=== PATIENT | male | born 1975 | race Caucasian/White ===

== ENCOUNTER 2018-07-02 21:32 | Emergency (ER) | payer SELFPAY ==
--- NOTE | 2018-07-02 22:17 | RAD ---
RIGHT KNEE FOUR VIEWS: 07/02/18 HISTORY: Right knee pain following an injury after stepping up onto a porch. FINDINGS: Mild degenerative changes. No acute fracture or dislocation. IMPRESSION: No acute fracture or dislocation. Mild degenerative change. POS: [facility]
== END 2018-07-02 22:50 | disposition home or self-care (01) ==
LOC: SCSER 21:32
DX: M25.561 Pain in right knee (principal); F17.210 Nicotine dependence, cigarettes, uncomplicated; Z71.6 Tobacco abuse counseling
CPT/HCPCS: 99406

== ENCOUNTER 2018-12-14 17:11 | Emergency (ER) | payer SELFPAY ==
--- NOTE | 2018-12-14 17:57 | RAD ---
CHEST TWO VIEW: 12/14/18 HISTORY: Cough. COMPARISON: Radiograph 217. FINDINGS: Heart size is mildly enlarged. Early edema. No pneumothorax. No effusion. No significant osseous abno rmality. IMPRESSION: Cardiomegaly with mild pulmonary edema. POS: [facility]
== END 2018-12-14 18:11 | disposition home or self-care (01) ==
LOC: SCSER 17:11
DX: J20.9 Acute bronchitis, unspecified (principal); F17.210 Nicotine dependence, cigarettes, uncomplicated
CPT/HCPCS: 71046

== ENCOUNTER 2019-10-26 19:47 | Inpatient (IN) | payer SELFPAY ==
--- NOTE | 2019-10-26 21:56 | RAD ---
RIGHT KNEE FOUR VIEWS: 10/26/19 COMPARISON: 07/02/18. HISTORY: Trauma, pain. FINDINGS: There is a comminuted impacted fracture involving the lateral tibial plateau. There is a large knee joint effusion with a fat fluid level consistent with lipohemarthrosis. There is patellofemoral joint space narrowing. No evidence for dislocation. IMPRESSION: Comminuted depressed lateral tibial plateau fracture. Recommend orthopedic consultation. POS: [facility]
[2019-10-26] MEDS ORDERED: Morphine 4 MG/ML VIAL ONE (22:47)
[2019-10-26] MEDS ORDERED: Ondansetron ODT 4 MG TAB ONE (22:47)
[2019-10-26 23:26] LABS: #Eosinphils 0.1 thou/uL (0.0-0.7); #Lymphocytes 2.2 thou/uL (1.20-3.40); #Monocytes 0.6 thou/uL (0.11-0.59); #Neutrophils 10.9 thou/uL (1.40-6.50); %Basophils 0.3 % (0.0-1.0); %Eosinophils 0.5 % (0.0-10.0); %Lymphocytes 15.9 % (21.0-51.0); %Monocytes 4.6 % (0.0-10.0); %Neutrophils 78.7 % (42.0-75.0); Mean Corpuscular HGB CONC 33.4 g/dL (32.0-36.0); Mean Corpuscular Hemoglobin 29.8 pg (27.0-31.0); Mean Platelet Volume 6.8 fL (7.4-10.4); Platelet Count 253 thou/uL (130-400); RBC Distribution Width 11.6 % (11.5-14.5); Red Blood Cell (RBC) Count 5.37 mill/uL (4.70-6.10); White Blood Cell (WBC) Count 13.8 thou/uL (4.8-10.8)
[2019-10-26] MEDS ORDERED: hydrALAZINE 20 MG/ML VIAL SLOW IVP PRN ×2 (23:30)
[2019-10-26] MEDS ORDERED: Dextrose 5% in Water 1,000 ML IV PRN (23:30)
[2019-10-26] MEDS ORDERED: Ondansetron ODT 4 MG TAB PO PRN (23:30)
[2019-10-26] MEDS ORDERED: Dextrose 50% Abboject 50 ML SYRINGE SLOW IVP PRN (23:30)
[2019-10-26] MEDS ORDERED: Ondansetron PF 4 MG/2 ML Vial IVP PRN (23:30)
[2019-10-26] MEDS ORDERED: HumaLOG 300 UNITS/3 ML VIAL SC PRN (23:30)
[2019-10-26] MEDS ORDERED: Ibuprofen 600 MG TAB PO PRN (23:33)
[2019-10-26] MEDS ORDERED: traMADol HCl 50 MG TAB PO PRN (23:33)
[2019-10-26 23:46] LABS: Prothrombin Time 13.1 sec (12.0-14.7)
[2019-10-26 23:47] LABS: ALT (SGPT) 29 U/L (8-55); AST (SGOT) 24 U/L (5-34); Albumin 4.6 g/dL (3.5-5.0); Alkaline Phosphatase 125 U/L (40-110); Anion Gap 14 mmol/L (10-20); BUN (Urea Nitrogen) 10 mg/dL (8.9-20.6); Bilirubin, Total 0.6 mg/dL (0.2-1.2); Calc. Creatinine Clearance 0 mL/min (70-130); Calcium 9.9 mg/dL (7.8-10.44); Carbon Dioxide 27 mmol/L (22-29); Chloride 98 mmol/L (98-107); Estimated GFR-MDRD 81; Globulin 3.4 g/dL (2.4-3.5); Glucose 103 mg/dL (70-105); Potassium 3.8 mmol/L (3.5-5.1); Sodium 135 mmol/L (136-145)
--- NOTE | 2019-10-27 00:34 | HP ---
This is Terrance Mcenal PA-C dictating a report for Tono Reed MD. REQUESTING PHYSICIAN: Dr. Bebeto Vargas, HOST COORDINATOR-C CONSULTING PHYSICIAN: Dr. Efrem Antonio. HISTORY OF PRESENT ILLNESS: Mr. Maher is a 44-year-old male who presented to the ED after an accident at work. 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 When moving heavy metal sheet, he was hit by a metal sheet on the right leg. No other area of his body was injured. Patient alert and awake the whole time. No loss of consciousness. Upon arrival in the ED, the patient alert and awake. GCS 15. Vital signs stable. Complains of right leg pain. REVIEW OF SYSTEMS: Noncontributory except per HPI. PAST MEDICAL HISTORY: Hypertension. PAST SURGICAL HISTORY: Bilateral hernia repair, cholecystectomy, right middle finger surgery, appendectomy. SOCIAL HISTORY: The patient lives at home with family. The patient drinks socially. Denies drug use. The patient smokes half a pack a day. PHYSICAL EXAMINATION: GENERAL: Currently, the patient is lying in bed in no acute respiratory distress. Complains of right leg pain, 7/10 to 8/10. GCS 15. SKIN: [place] and moist. VITAL SIGNS: Heart rate 82, respiratory rate 18, O2 saturation 98% on room air, blood pressure is 143/87, temperature 98.2. HEENT: Atraumatic. No bruising. Not tender to palpation. Pupils 3 mm, equal bilaterally. NECK: Trachea midline. Not tender to palpation. CHEST: Atraumatic. No bruising. Not tender to palpation. LUNGS: Clear bilaterally. HEART: Regular rate and rhythm. ABDOMEN: No bruising. Not tender to palpation. No rebound. No guarding. Nondistended. Bowel sounds active. PELVIS: Stable. EXTREMITIES: There is obvious deformity of right knee area bruising. Right feet pulses 2+ both dorsal and posterior tibial pulse. Gross sensory intact. Bilateral upper extremity and left lower extremity neurovascularly intact x3. NEUROLOGIC: No focal neurology deficits. DIAGNOSTIC STUDIES: Initial workup shows white count 13.8, hemoglobin is 16, platelet count is 253. Chemistry is pending. Right knee x-ray shows comminuted depressed lateral tibial plateau fracture. ASSESSMENT: 1. Status post got hit by a piece of metal. 2. Right closed comminuted, depressed lateral tibial plateau fracture with neurovascularly intact. 3. History of hypertension. PLAN: The patient will be admitted to [place] [id number] for pain control. N.p.o. at midnight. Initiate pulmonary toilet, gastritis for prophylaxis and nonpharmacological DVT prophylaxis. The patient will be put on right knee immobilizer. Dr. Antonio is notified. Dr. Antonio will take the patient to the OR tomorrow for right tibial plateau fracture fixation. Dr. Reed is notified before the fixation. Job ID: [id number]
[2019-10-27] MEDS: Sodium Chloride 0.9% 1,000 ML IV SCH ×4 (00:53→23:30)
[2019-10-27] MEDS: Acetaminophen 500 MG TAB PO SCH ×5 (00:55→23:30)
[2019-10-27 01:03] VITALS: BMI 34.5
--- NOTE | 2019-10-27 08:16 | CON ---
DATE OF CONSULTATION: This is Vj Jordan PA-C dictating a report for Efrem Antonio MD. HISTORY OF PRESENT ILLNESS: We were asked by ER and Trauma to see the patient. The patient was helping a friend out. He is currently unemployed, and he was making little extra money with him and unfortunately they were lifting some mary plate steel sheets at the back of the workplace building and they slipped away from him and it landed on his right leg and left leg. Left leg has few abrasions, but does not seem to be bothersome. The right leg is in an immobilizer and seems to feel pretty sore, especially with any movement. No numbness and tingling down the legs. Denies any other injuries. PAST MEDICAL HISTORY: Positive for hypertension. PAST SURGICAL HISTORY: He has had appendix, gallbladder, and hernia and a finger surgery. SOCIAL HISTORY: He lives at home with his and family. Denies alcohol or drug use, but does smoke half to a whole pack a day. CURRENT MEDICATIONS: He is on 3 hypertension medications, which his will bring up to the hospital, so we know what he is taking and get him back on those. ALLERGIES: SULFA. REVIEW OF SYSTEMS: Denies any chest pain, shortness of breath, bowel or bladder problems. His main concern is right leg pain. The left leg is a little sore, but basically his only positive review of systems are his injuries. Rest review of systems discussed and are negative. PHYSICAL EXAMINATION: GENERAL: Well-nourished, well-developed male, alert, pleasant, in moderate distress. Speech clear. Affect pleasant. Answer questions appropriately. He is alert and oriented x3. VITAL SIGNS: Respirations 16. No acute distress. HEENT: Normal exam. Face symmetric. Tongue midline. NECK: Supple. Trachea midline. Swallowing okay, but currently is n.p.o. He did have some sips of water for his medications this morning. PELVIS: Nonpainful with rocking. EXTREMITIES: Upper extremities, equal size, shape, symmetry, normal bulk and tone. Movements are good and equal as are strength. He has an IV in the left antecubital space. Lower extremity exam, right lower extremity is in a knee immobilizer. His skin is wrinkled. He does have some swelling around the knee, but the wrinkles are good sign and we informed him of why this is good sign. He is able to move both lower extremities, feet well. No numbness or tingling found. DP and PT pulses equal and sensations intact. His left knee is a little swollen, but he says it is not all that tender. If it starts getting tender in the next few days, may need to get an x-ray of this and he understands. ASSESSMENT: Right tibial plateau fracture. PLAN: We had asked the ER to do a CT scan for surgical purposes, unfortunately this was not done. We are ordering a stat CT this morning for surgical purposes with 3D reconstructions. The patient currently is n.p.o. Plan is to get him to the OR this afternoon. He has been consented. I went over risks and benefits. His questions and concerns have been addressed and they are amenable to go forth with surgery. His currently is not here, but if she comes up and has some questions, we will address those at that time. Job ID: [id number]
[2019-10-27] MEDS: Gabapentin 300 MG CAP PO SCH ×2 (08:43→20:04)
[2019-10-27] MEDS: Famotidine/PF 20 mg/2ml Vial SLOW IVP SCH ×2 (08:43→20:04)
[2019-10-27] MEDS: Nicotine 21 MG PATCH TD SCH (08:44)
[2019-10-27] MEDS: Morphine 4 MG/ML VIAL SLOW IVP PRN ×2 (09:55→18:00)
--- NOTE | 2019-10-27 11:33 | CT ---
CT RIGHT LEG WITHOUT CONTRAST: HISTORY: Pain. Fracture. COMPARISON: Radiograph of prior day. FINDINGS: CT of the right knee was performed without intravenous contrast. Three-D rendering was provided. Lateral split fracture with depression of the weightbearing portion lateral tibial plateau. The zi cular surface depression is approximately 1.4 cm. The fracture involves nearly the entire weightbear ing surface of the lateral tibial plateau. The lateral split fracture is displaced laterally 2 mm. Large lipohemarthrosis. No medial tibial plateau fracture. From the joint space, the fracture exten ds 3.5 cm. Medial tibial plateau is intact. The femoral condyles are intact. Small flecks of osseous debris in the lateral compartment. Low-grade edema along the soleus muscle. The knee extenders are intact. The patella tendon is intac t. Quadriceps tendon is intact. PCL is intact. IMPRESSION: Schatzker 2 lateral split/wedge fracture of tibial plateau with depression of the weightbearing surfa ce. The fracture involves the majority of the weightbearing surface of the tibial plateau with 2 mm lateral displacement of the lateral split fracture. There is 1.4 cm of articular surface depression with fracture distal tothe joint space 2.2 cm. POS: [facility]
[2019-10-27] MEDS: Morphine 2 MG/ML SYRINGE SLOW IVP PRN ×2 (12:18→21:42)
[2019-10-27] MEDS ORDERED: PROPOFOL 200 MG/20 ML VIAL ONE (13:39)
[2019-10-27] MEDS ORDERED: Glycopyrrolate 0.2 MG/ML 5 ML SYRINGE ONE (13:39)
[2019-10-27] MEDS ORDERED: Labetalol HCl 100 MG/20 ML VIAL ONE (13:39)
[2019-10-27] MEDS ORDERED: Lidocaine 1% PF 5 ML VIAL ONE (13:39)
[2019-10-27] MEDS ORDERED: Rocuronium Bromide 10 MG/ML (10ML VIAL) ONE (13:39)
[2019-10-27] MEDS ORDERED: Fentanyl 100 MCG/2 ML VIAL ONE ×3 (14:22→17:06)
[2019-10-27] MEDS ORDERED: Midazolam HCl 2 mg/2 ml Vial ONE (14:22)
--- NOTE | 2019-10-27 16:12 | PRG ---
DATE OF SERVICE: 10/27/2019 SUBJECTIVE: The patient is currently on the surgical floor. He is hospital day 2, status post having a large piece of metal strike his right knee resulting in a right tibial plateau fracture. The patient is currently n.p.o. and awaiting surgical intervention by Orthopedics today. Overnight, the patient had no issues. This morning again, he was n.p.o. but reports that his pain is controlled. PHYSICAL EXAMINATION: VITAL SIGNS: Temperature is 97.8, heart rate 94, blood pressure 155/91, respirations 18, oxygen saturation 95% on room air. GENERAL: The patient is resting comfortably in bed. He is awake, alert, and oriented x3. [place] Coma Scale is 15. HEENT: Unremarkable. LUNGS: Clear to auscultation. RESPIRATIONS: Nonlabored. HEART: Regular rate and rhythm. ABDOMEN: Soft, flat, nontender with hyperactive bowel sounds. EXTREMITIES: Neurovascularly intact x4. Right lower extremity has a knee immobilizer on it. LABORATORY DATA: There are no labs or radiographs to review this morning. ASSESSMENT AND PLAN: 1. Status post blunt trauma to right knee. 2. Right tibial plateau fracture. 3. Acute pain secondary to above. PLAN: Plan will be to continue n.p.o. status, pain control, and postoperatively we will begin physical therapy, resume his diet, start oral pain medications and the patient after crutch training will likely be able to go home tomorrow. The patient was evaluated this morning with Dr. Hernandez during rounds. Job ID: [id number]
[2019-10-27] MEDS: CEFAZOLIN 2 GM in Premix Bag 1 BAG IVPB SCH (20:04)
--- NOTE | 2019-10-27 21:22 | RAD ---
Intraoperative imaging of the right tibia/fibula: 10/27/2019 COMPARISON: 10/26/2019 HISTORY: Fracture status post ORIF FINDINGS: Previously noted lateral tibial plateau fracture has been treated with proximal tibial late ral screw and plate fixation. There is anatomic alignment at the fracture site. IMPRESSION: ORIF as above.
--- NOTE | 2019-10-28 01:03 | OP ---
DATE OF PROCEDURE: 10/27/2019 PREOPERATIVE DIAGNOSIS: Right lateral tibial plateau fracture, severely comminuted. POSTOPERATIVE DIAGNOSIS: Right lateral tibial plateau fracture, severely comminuted. PROCEDURE PERFORMED: Open reduction and internal fixation of right lateral tibial plateau. ANESTHESIA: General. BUSINESS COORDINATOR: Julian. TOURNIQUET TIME: 76 minutes at 300 mmHg. IMPLANTS: Synthes 3.5 mm locking proximal lateral tibial plateau plate. COMPLICATIONS: None. DRAINS: None. SPECIMEN: None. OUTCOME: Satisfactory. INDICATIONS FOR PROCEDURE: The patient is a 44-year-old gentleman, who had a heavy object land on his right leg sustaining a right lateral tibial plateau joint depression fracture. CT scan shows severe comminution of this lateral plateau with significant joint depression. After discussion with the patient including risks and benefits, we decided to proceed with open reduction and internal fixation. Preoperatively, I did discuss with the patient that he has a severely comminuted fracture and that he does certainly run the risk of postoperative degenerative changes within this joint. Informed consent has been obtained. I believe all questions answered. DESCRIPTION OF PROCEDURE: The patient was brought to the operating room and a time-out performed followed by induction of general anesthesia. Next, the patient was positioned supine on the OR table and a sterile prep and drape was performed in the right lower extremity. Next, the limb was exsanguinated with an Esmarch bandage. Tourniquet inflated to 300 mmHg. Next, a curvilinear anterior lateral incision was made. After skin was sharply incised, dissection was carried down bluntly to the underlying fascia of the anterior compartment. The fascia was then incised just lateral to the tibial crest and then carried up to the joint itself. After the fascia was incised, the muscle was swept off the lateral aspect of the proximal tibia and reflected to allow for visualization of the fracture and the lateral aspect of the tibia. Next, the dissection was carried up further crossing the joint with the meniscus protected to allow for visualization under the meniscus to look at the joint surface. Next, the anterior fracture line was exploited open to allow visualization of the joint depression in the metaphyseal portion of the bone. It should be noted at this time that the chondral surface of the majority of the lateral plateau was completely sheared from the subchondral bone surface and where subchondral bone surface was present was severely comminuted. This obviously does not samantha well for survival of this joint surface. The depressed portion of the joint surface was elevated, and then backfilled with cancellous bone chips. Once elevated, the hinge of the cortex was closed and then a lateral plate applied and held in place with a bone tenaculum. X-rays were then obtained that showed some joint surface incongruity, but scientologist of the normal height of that joint. Next, a total of 4 locking screws were placed in the horizontal limb of the plate followed by cortical screws in the longitudinal limb stabilizing the fracture. Final AP and lateral C-arm images were obtained and the wound then irrigated with bulb syringe. Closure was performed with 0 Vicryl for fascia followed by 2-0 Vicryl and edgard for the skin. Xeroform gauze, Webril, and knee immobilizer was applied to the knee. The tourniquet was let down for a total of 76 minutes and the patient was transferred to recovery room. There were no complications. He tolerated the procedure well. Job ID: [id number]
[2019-10-28] MEDS: Morphine 2 MG/ML SYRINGE SLOW IVP PRN ×2 (01:52→05:39)
[2019-10-28] MEDS: Acetaminophen 500 MG TAB PO SCH ×3 (05:39→17:13)
[2019-10-28] MEDS: CEFAZOLIN 2 GM in Premix Bag 1 BAG IVPB SCH (05:39)
[2019-10-28] MEDS: Sodium Chloride 0.9% 1,000 ML IV SCH (05:40)
--- NOTE | 2019-10-28 06:52 | PDOC.BPN ---
- Brief Progress Note DATE OF SERVICE: 10/27/2019 SUBJECTIVE: Mr. Maher remained encouraged in surgical floor. The patient was seen on round this evening. The patient reports pain is well controlled. he tolerated with her regular diet. he is able to work with Physical Therapy, Occupational Therapy. he developed no fever or shortness of breath. OBJECTIVE: GENERAL: Currently, the patient is lying in bed, with no acute respiratory distress VITAL SIGNS: stable LUNGS: Clear bilaterally. HEART: Regular rate and rhythm. ABDOMEN: Soft, nondistended. EXTREMITIES: Neurovascularly intact x4. Postop dressing clean, dry, intact. ASSESSMENT: 1. Status post ground level fall. 2. Right tibial plateau fracture, status post repair. 3. History of hypertension PLAN: Continue supportive care. Continue pain control. Continue working with Physical Therapy and Occupational Therapy, and placement is pending.
[2019-10-28] MEDS: Famotidine/PF 20 mg/2ml Vial SLOW IVP SCH (08:19)
[2019-10-28] MEDS: Nicotine 21 MG PATCH TD SCH (08:19)
[2019-10-28] MEDS: Gabapentin 300 MG CAP PO SCH (08:19)
[2019-10-28 08:52] LABS: Hemoglobin 14.4 g/dL (14.0-18.0); Mean Corpuscular HGB CONC 34.4 g/dL (32.0-36.0); Mean Corpuscular Hemoglobin 31.1 pg (27.0-31.0); Mean Corpuscular Volume 90.4 fL (78.0-98.0); Mean Platelet Volume 7.2 fL (7.4-10.4); Platelet Count 218 thou/uL (130-400); RBC Distribution Width 11.6 % (11.5-14.5); Red Blood Cell (RBC) Count 4.64 mill/uL (4.70-6.10); White Blood Cell (WBC) Count 11.3 thou/uL (4.8-10.8)
[2019-10-28] MEDS: traMADol HCl 50 MG TAB PO PRN ×2 (08:56→17:14)
[2019-10-28 08:59] LABS: Band 3 % (5-11); Lymphocytes 17 % (21-51); MDiff Complete? YES; Monocytes 7 % (0-10); Neutrophil 72 % (42-75); Platelet Morphology Comment Appears Adequate; RBC Morphology Normal
[2019-10-28] MEDS ORDERED: Enoxaparin Sodium 40 MG/0.4 ML SYRINGE SC SCH (09:00)
[2019-10-28 16:08] VITALS: BP 136/82; TEMP 98.3
== END 2019-10-28 17:35 | disposition home or self-care (01) | DRG 494 ==
LOC: ERS 19:47 → SURG A 10-27 00:47
PROVIDERS: ADMIT Specialist; ATTEND Specialist
PROC: 0QSH04Z Reposition Left Tibia with Internal Fixation Device, Open Approach (ICD-10-PCS; principal; 2019-10-27)
DX: S82.141A Displaced bicondylar fracture of right tibia, initial encounter for closed fracture (principal); W22.8XXA Striking against or struck by other objects, initial encounter; I10 Essential (primary) hypertension; F17.210 Nicotine dependence, cigarettes, uncomplicated; Y92.69 Other specified industrial and construction area as the place of occurrence of the external cause; Y99.0 Civilian activity done for income or pay; Z90.49 Acquired absence of other specified parts of digestive tract
CPT/HCPCS: 36415; 76000; 76377; 80053; 85025; 85610; 85730; 86850; 86900; 86901; 96372; C1713; J0690; J1650; J2250; J2270; J3010; Q0162; S0028

== ENCOUNTER 2021-12-24 16:10 | Emergency (ER) | payer SELFPAY ==
[2021-12-24] MEDS ORDERED: Ondansetron PF 4 MG/2 ML Vial ONE (18:12)
[2021-12-24 18:35] LABS: Hemoglobin 15.5 g/dL (14.0-18.0); Mean Corpuscular HGB CONC 34.3 g/dL (32.0-36.0); Mean Corpuscular Hemoglobin 31.8 pg (27.0-31.0); Mean Corpuscular Volume 92.8 fL (78.0-98.0); Mean Platelet Volume 7.5 fL (7.4-10.4); Platelet Count 202 thou/uL (130-400); RBC Distribution Width 11.4 % (11.5-14.5); Red Blood Cell (RBC) Count 4.89 mill/uL (4.70-6.10); White Blood Cell (WBC) Count 8.4 thou/uL (4.8-10.8)
[2021-12-24 18:49] LABS: Eosinophils 7 % (0-10); Lymphocytes 24 % (21-51); MDiff Complete? YES; Monocytes 11 % (0-10); Neutrophil 56 % (42-75); Platelet Morphology Comment Appears Adequate; RBC Morphology Normal; Reactive Lymphocytes 2 % (0-10)
[2021-12-24 18:56] LABS: ALT (SGPT) 18 U/L (8-55); AST (SGOT) 16 U/L (5-34); Albumin 4.1 g/dL (3.5-5.0); Alkaline Phosphatase 114 U/L (40-110); Anion Gap 15 mmol/L (10-20); BUN (Urea Nitrogen) 13 mg/dL (8.9-20.6); Bilirubin, Total 0.3 mg/dL (0.2-1.2); CK (CPK) 90 U/L (30-200); Calc. Creatinine Clearance 0 mL/min (70-130); Calcium 9.6 mg/dL (7.8-10.44); Carbon Dioxide 25 mmol/L (22-29); Chloride 102 mmol/L (98-107); Estimated GFR 113; Globulin 3.2 g/dL (2.4-3.5); Glucose 81 mg/dL (70-105); Lipase 57 U/L (8-78); Potassium 3.7 mmol/L (3.5-5.1); Protein, Total 7.3 g/dL (6.0-8.3); Sodium 138 mmol/L (136-145)
== END 2021-12-24 19:42 | disposition home or self-care (01) ==
LOC: ERS 16:10
DX: R11.2 Nausea with vomiting, unspecified (principal); R19.7 Diarrhea, unspecified; E86.0 Dehydration; I10 Essential (primary) hypertension; F17.210 Nicotine dependence, cigarettes, uncomplicated; Z20.822 Contact with and (suspected) exposure to COVID-19; Z79.899 Other long term (current) drug therapy
CPT/HCPCS: 80053; 82550; 83690; 85025; 96361; 96374; J2405; U0003; U0005

== ENCOUNTER 2023-04-14 21:09 | Emergency (ER) | payer SELFPAY ==
[2023-04-14 22:01] LABS: #Eosinphils 0.1 thou/uL (0.0-0.7); #Monocytes 0.6 thou/uL (0.11-0.59); #Neutrophils 4.4 thou/uL (1.40-6.50); %Basophils 0.5 % (0.0-1.0); %Eosinophils 1.5 % (0.0-10.0); %Lymphocytes 35.8 % (21.0-51.0); %Monocytes 7.9 % (0.0-10.0); %Neutrophils 54.2 % (42.0-75.0); Hematocrit 46.4 % (42.0-52.0); Hemoglobin 16.4 g/dL (14.0-18.0); Mean Corpuscular HGB CONC 35.3 g/dL (32.0-36.0); Mean Corpuscular Hemoglobin 31.6 pg (27.0-31.0); Mean Corpuscular Volume 89.4 fl (78.0-98.0); Mean Platelet Volume 9.3 fL (7.4-10.4); Platelet Count 236 10x3/uL (130-400); RBC Distribution Width 11.9 % (11.5-14.5); Red Blood Cell (RBC) Count 5.19 mill/uL (4.70-6.10); White Blood Cell (WBC) Count 8.1 10x3/uL (4.8-10.8)
[2023-04-14 22:28] LABS: ALT (SGPT) 24 U/L (8-55); AST (SGOT) 20 U/L (5-34); Albumin 4.9 g/dL (3.5-5.0); Alkaline Phosphatase 100 U/L (40-110); Anion Gap 13 mmol/L (10-20); BUN (Urea Nitrogen) 16 mg/dL (8.9-20.6); Bilirubin, Total 0.6 mg/dL (0.2-1.2); Calc. Creatinine Clearance 0 mL/min (70-130); Calcium 9.3 mg/dL (7.8-10.44); Carbon Dioxide 25 mmol/L (22-29); Chloride 101 mmol/L (98-107); Estimated GFR 95; Globulin 2.6 g/dL (2.4-3.5); Glucose 88 mg/dL (70-105); Potassium 3.6 mmol/L (3.5-5.1); Protein, Total 7.5 g/dL (6.0-8.3); Sodium 135 mmol/L (136-145)
== END 2023-04-14 23:39 | disposition home or self-care (01) ==
LOC: ERS 21:09
DX: Z77.098 Contact with and (suspected) exposure to other hazardous, chiefly nonmedicinal, chemicals (principal); R11.2 Nausea with vomiting, unspecified; I10 Essential (primary) hypertension; F17.210 Nicotine dependence, cigarettes, uncomplicated; Y93.89 Activity, other specified; Y92.69 Other specified industrial and construction area as the place of occurrence of the external cause
CPT/HCPCS: 36415; 71045; 80053; 84484; 85025

== ENCOUNTER 2023-06-24 07:50 | Emergency (ER) | payer SELFPAY ==
[2023-06-24 08:48] LABS: SARS-CoV-2 NAA Rapid Test Not Detected (NotDetected)
== END 2023-06-24 09:06 | disposition home or self-care (01) ==
LOC: ERS 07:50
DX: J10.1 Influenza due to other identified influenza virus with other respiratory manifestations (principal); I10 Essential (primary) hypertension; F17.210 Nicotine dependence, cigarettes, uncomplicated
CPT/HCPCS: 99283

== ENCOUNTER 2023-12-27 15:09 | Emergency (ER) | payer SELFPAY ==
[2023-12-27 18:20] LABS: #Basophils 0.03 10x3/uL (0.0-0.2); %Basophils 0.4 % (0.0-1.0); %Monocytes 6.6 % (0.0-10.0); %Neutrophils 65.7 % (42.0-75.0); Hematocrit 47.3 % (42.0-52.0); Hemoglobin 16.8 g/dL (14.0-18.0); Mean Corpuscular HGB CONC 35.5 g/dL (32.0-36.0); Mean Corpuscular Hemoglobin 30.8 pg (27.0-31.0); Mean Corpuscular Volume 86.8 fL (78.0-98.0); Mean Platelet Volume 9.3 fL (7.4-10.4); Platelet Count 257 10x3/uL (130-400); RBC Distribution Width 12.5 % (11.5-14.5); Red Blood Cell (RBC) Count 5.45 mill/uL (4.70-6.10)
[2023-12-27 18:41] LABS: ALT (SGPT) 32 U/L (8-55); AST (SGOT) 24 U/L (5-34); Albumin 4.5 g/dL (3.5-5.0); Alkaline Phosphatase 98 U/L (40-110); Anion Gap 15 mmol/L (10-20); BUN (Urea Nitrogen) 10 mg/dL (8.9-20.6); Bilirubin, Total 0.6 mg/dL (0.2-1.2); Calc. Creatinine Clearance 0 mL/min (70-130); Calcium 9.9 mg/dL (7.8-10.44); Carbon Dioxide 24 mmol/L (22-29); Chloride 105 mmol/L (98-107); Estimated GFR 105; Globulin 3.6 g/dL (2.4-3.5); Glucose 81 mg/dL (70-105); Potassium 4.1 mmol/L (3.5-5.1); Protein, Total 8.1 g/dL (6.0-8.3); Sodium 140 mmol/L (136-145)
== END 2023-12-27 19:31 | disposition home or self-care (01) ==
LOC: ERS 15:09
DX: K62.5 Hemorrhage of anus and rectum (principal); I10 Essential (primary) hypertension; Z87.891 Personal history of nicotine dependence
CPT/HCPCS: 36415; 80053; 85025; 93005